=== PATIENT | male | born 1970 | race Asian ===

== ENCOUNTER 2017-01-09 15:49 | Emergency (ER) | payer BC ==
[~2017-01-09] VITALS: Ht 165.1 cm; Wt 61.7 kg
[2017-01-09 16:05] VITALS: BP 168/111
--- NOTE | 2017-01-09 16:23 | PHYS DOC ---
Past Medical History Past Medical History: No Pertinent History Past Surgical History: No Surgical History Alcohol Use: Occasionally Drug Use: None Adult General Chief Complaint Chief Complaint: LACERATION/AVULSION HPI HPI Patient is a 46 year old male with no significant medical history who presents today with left ring finger fingertip avulsion that happened 3 days ago. Patient states he was working on his car and one of the belts cut him. Review of Systems Review of Systems Constitutional: Denies fever or chills [] Musculoskeletal: left ring finger fingertip avulsion Integument: left ring finger fingertip avulsion Neurologic: Denies headache, focal weakness or sensory changes [] Current Medications Current Medications Current Medications Medications (Trade) Dose Ordered Sig/Chel Start Time Stop Time Status Last Admin Dose Admin Diphtheria/ Tetanus/Acell Pertussis (Boostrix) 0.5 ml ONCE ONCE 01/09/17 16:30 01/09/17 16:31 DC 01/09/17 17:03 0.5 ML Neomycin/ Polymyxin/ Bacitracin (Triple Antibiotic Ointment) 1 pkt 1X ONCE 01/09/17 16:30 01/09/17 16:31 DC 01/09/17 17:03 1 PKT Allergies Allergies Allergies Coded Allergies Type Severity Reaction Last Updated Verified No Known Drug Allergies 01/09/17 No Physical Exam Physical Exam Constitutional: Well developed, well nourished, no acute distress, non-toxic appearance. [] Skin: Warm, dry, no erythema, no rash. [] Back: No tenderness, no CVA tenderness. [] Extremities: Left ring finger tip is noted for a complete skin avulsion approximately 2 x 2 centimeters the tip of the finger. No obvious bones or tendon involvement. Adequate sensation to the left ring finger. Full range of motion to the left ring finger. +2 left radial pulse. Cap refill less than 2 seconds the left finger. Neurologic: Alert and oriented X 3, normal motor function, normal sensory function, no focal deficits noted. [] Psychologic: Affect normal, judgement normal, mood normal. [] Current Patient Data Vital Signs Vital Signs Date Time Temp Pulse Resp B/P (MAP) Pulse Ox O2 Delivery O2 Flow Rate FiO2 01/09/17 16:05 98.7 76 16 97 Room Air 98.7 EKG EKG [] Radiology/Procedures Radiology/Procedures []PROCEDURE: FINGER(S) LEFT Hand plain films Indication: Fourth digit Injury technique: 3 views of the left hand Comparison: None Findings: Fracture of the tuft of the fourth finger noted with no extension to the articular surface. No dislocation. Impression: As above. DICTATED and SIGNED BY: BECKY MILLER DO DATE: 01/09/17 1641 CC: ESTER HALL APRN; NO PCP; NON,STAFF ~ Course & Med Decision Making Course & Med Decision Making Pertinent Labs and Imaging studies reviewed. (See chart for details) Patient is in the ED with left ring fingertip skin avulsion that happened two days ago. Tetanus was updated. Left ring finger x-rays interpreted by radiologist were noted for-Fracture of the tuft of the fourth finger with no extension to the articular surface. Spoke to patient about his injury which is two days old. Recommended he follows up with a hospital that has a hand surgeon considering this injury is 2 days old. We cleaned the finger. Applied Neosporin and splinted it by me, neurovascular exam is normal. Discharge with cephalexin. Patient's blood pressure was 168/111, he has no history of hypertension. We provided him a primary care doctor's list for follow-up for his blood pressure recheck. He has no cardiac or neurological symptoms. Patient appears to have some tremors. I requested patient to give me further information about his medical history especially use of alcohol. He states is an alcoholic. He states he drinks every day and this is about the time he drinks hence the reason his tremors because he has not drunk yet. I requested patient to consider getting help for his alcohol abuse. Factory Supervisor line was used for Aydin Mckeon Disclaimer Mike Disclaimer This electronic medical record was generated, in whole or in part, using a voice recognition dictation system. Departure Departure Impression: Primary Impression: Open fracture of tuft of distal phalanx of finger Additional Impressions: Fingertip avulsion Hypertension ETOH abuse Disposition: 01 HOME, SELF-CARE Condition: STABLE Referrals: NO PCP (PCP) follow up with [facility] hand surgeon or [facility] [place] [place] Hand surgeon or any other hand surgoen in [place] as soon as you can. Patient Instructions: Finger Avulsion, Finger Fracture Additional Instructions: You were seen for left ring fingertip avulsion with a fracture of the left ring finger tip. Keep the area clean and dry. Apply Neosporin to the area twice a day. Complete your antibiotics. Monitor the area for signs and symptoms of infection including but not limited to increased redness warmth or odor/yellow drainage from the area and return to the ED. Follow-up with [facility] hand surgeon by calling their office tomorrow [phone]. Your blood pressure was also high at168/111 . You need your blood pressure to be rechecked by her primary care doctor from the list we provided. . Scripts Acetaminophen With Codeine (TYLENOL WITH CODEINE #3 TABLET) 1 Each Tablet 1 TAB PO PRN Q6HRS Y for PAIN, #30 TAB Prov: ESTER HALL APRN 01/09/17 Cephalexin (CEPHALEXIN) 500 Mg Tablet 1 TAB PO QID, #40 TAB Prov: ESTER HALL APRN 01/09/17 Problem Qualifiers Additional Impressions: Fingertip avulsion Encounter type: initial encounter Qualified Codes: S61.209A - Unspecified open wound of unspecified finger without damage to nail, initial encounter Hypertension Hypertension type: unspecified Qualified Codes: I10 - Essential (primary) hypertension ESTER HALL APRN Jan 09, 2017 16:23
[2017-01-09] MEDS ORDERED: NEOMY/BACITR/POLYMYXIN OINT PACKET. TP ONE (16:30)
[2017-01-09] MEDS ORDERED: DIPHTH,PERTUSS(ACELL),TET TOX 0.5 ML DISP.SYRIN. VAX IM ONE (16:30)
--- NOTE | 2017-01-09 16:45 | RAD ---
Hand plain films Indication: Fourth digit Injury technique: 3 views of the left hand Comparison: None Findings: Fracture of the tuft of the fourth finger noted with no extension to the articular surface. No dislocation. Impression: As above.
[2017-01-09] MEDS ORDERED: ACET-704 PO (17:03)
[2017-01-09] MEDS ORDERED: CEPH500T PO (17:03)
== END 2017-01-09 17:25 | disposition home or self-care (01) ==
LOC: ER 15:49
DX: S62.635B Displaced fracture of distal phalanx of left ring finger, initial encounter for open fracture (principal); I10 Essential (primary) hypertension; F10.10 Alcohol abuse, uncomplicated; W26.8XXA Contact with other sharp object(s), not elsewhere classified, initial encounter; Y93.89 Activity, other specified; Y92.89 Other specified places as the place of occurrence of the external cause; Y99.8 Other external cause status
CPT/HCPCS: 29130; 73140; 90471; 90715; 99284-25